=== PATIENT | female | born 1955 | race Hispanic/Latino ===

== ENCOUNTER 2024-05-23 02:25 | Emergency (ER) | payer OTHER ==
[~2024-05-23] VITALS: Ht 149.9 cm; Wt 84.4 kg
[2024-05-23 02:28] VITALS: TEMP 97.4
--- NOTE | 2024-05-23 02:45 | ERN ---
General Chief Complaint: Abdominal Pain Stated Complaint: C/O ABD PAIN X 2 DAYS Time Seen by MD: 02:37 History of Present Illness Initial Comments Patient comes in with complaint of lower abdominal pain for the last two days. Yesterday she had some nausea but no vomiting. No diarrhea. Seems to be worse when she tries to have a bowel movement. She thought perhaps she was a bit constipated but felt like she had an adequate defecation even after trying. Pain is in the suprapubic region. Allergies: Coded Allergies: No Known Allergies (Unverified Allergy, Unknown, 05/23/24) Past Medical History Past Medical History: High Cholesterol Past Surgical History: Hysterectomy ROS Dictation Ten systems reviewed and negative except as noted in HPI Physical Exam Physical Exam Dictation GEN: non toxic, NAD HEENT: atrumatic, PERRL, EOMI, conjunctivae normal NECK: Soft supple nontender Heart RRR, no murmurs Chest: No deformity Lungs: Lungs clear to auscultation Ab: Soft nondistended . Patient has localized tenderness to the left lower quadrant. No gross peritonitis. Back: No midline step-offs. No gross deformity. No CVA tenderness : m/s: Moving all four extremities. No gross deformity Neuro: CN 2-12 intact. Moving all four extremities. Psych: Cooperative Results Laboratory and Microbiology Lab and Micro Result Laboratory Tests Test 05/23/24 02:36 05/23/24 03:39 White Blood Count 13.2 K/uL (4.8-10.8) H Red Blood Count 4.55 MIL/uL (4.00-5.50) Hemoglobin 13.2 g/dL (12.0-16.0) Hematocrit 39.7 % (36-48) Mean Corpuscular Volume 87.3 fL (79-99) Mean Corpuscular Hemoglobin 29.0 pg (27.0-33.0) Mean Corpuscular Hemoglobin Concent 33.2 g/dL (32.0-36.0) Red Cell Distribution Width 13.8 % (11.0-15.5) Platelet Count 297 K/uL (130-400) Mean Platelet Volume 11.3 fL (7.5-10.5) H Immature Granulocyte % (Auto) 0.4 % (0-1) Neutrophils (%) (Auto) 74.7 % (40.0-77.0) Lymphocytes (%) (Auto) 15.9 % (21.0-51.0) L Monocytes (%) (Auto) 7.0 % (3.0-13.0) Eosinophils (%) (Auto) 1.6 % (0.0-8.0) Basophils (%) (Auto) 0.4 % (0.0-5.0) Neutrophils # (Auto) 9.9 K/uL (1.8-7.7) H Lymphocytes # (Auto) 2.1 K/uL (1.0-4.8) Monocytes # (Auto) 0.9 K/uL (0.1-1.0) Eosinophils # (Auto) 0.21 K/uL (0.00-0.70) Basophils # (Auto) 0.05 K/uL (0.00-0.20) Absolute Immature Granulocyte (auto 0.05 K/uL (0-1) Nucleated Red Blood Cells 0.0 % (0.0-0.19) Sodium Level 137 mmol/L (136-145) Potassium Level 4.0 mmol/L (3.5-5.1) Chloride Level 102 mmol/L (101-111) Carbon Dioxide Level 29 mmol/L (21-32) Blood Urea Nitrogen 14 mg/dL (7-18) Creatinine 0.7 mg/dL (0.5-1.0) Glomerular Filtration Rate Calc 95 mL/min (>90) Random Glucose 112 mg/dL (70-105) H Total Calcium 8.3 mg/dL (8.5-10.1) L Total Bilirubin 0.4 mg/dL (0.2-1.0) Aspartate Amino Transf (AST/SGOT) 14 U/L (10-37) Alanine Aminotransferase (ALT/SGPT) 18 U/L (12-78) Alkaline Phosphatase 87 U/L (50-136) Total Protein 7.5 g/dL (6.0-8.3) Albumin 3.3 g/dL (3.5-5.0) L Urine Color LIGHT-YELLOW (YELLOW) Urine Appearance CLEAR (CLEAR) Urine pH 6.5 (5.0-8.0) Urine Specific [place] 1.012 (1.001-1.031) Urine Protein NEGATIVE mg/dL (NEGATIVE) Urine Glucose (UA) NEGATIVE mg/dL (NEGATIVE) Urine Ketones NEGATIVE mg/dL (NEGATIVE) Urine Occult Blood MODERATE (NEGATIVE) H Urine Nitrate NEGATIVE (NEGATIVE) Urine Bilirubin NEGATIVE mg/dL (NEGATIVE) Urine Urobilinogen 0.2 mg/dL (0.2-1.0) Urine Leukocyte Esterase 500 Brianna/uL (NEGATIVE) H Urine RBC 11-25 /HPF (0-1) H Urine WBC 11-25 /HPF (0-1) H Urine Squamous Epithelial Cells FEW /HPF (0-2) Urine Bacteria MOD /HPF (None Seen) Labs Reviewed?: Yes EKG/XRAY/US/CT/MRI CT Scan Comment Statrad read: All acute uncomplicated diverticulitis involves the mall segment of the mid sigmoid colon. No associated focal fluid collections or abscess formation. No pneumatosis. No bowel obstruction. No intraperitoneal free fluid or air. MDM Patient likely has diverticulitis. We will do a CT. Labs. Patient has uncomplicated sigmoid diverticulitis. Dose of Levaquin and Flagyl given here. Discharged on Cipro and Flagyl. ED Course Orders Procedure Category Date Status Time Ct Abdomen/Pelvis CT 05/23/24 Taken W/Contrast 02:42 Cbc With Differential LAB 05/23/24 Complete 02:42 Comprehensive LAB 05/23/24 Complete Metabolic Panel 02:42 Urinalysis LAB 05/23/24 Complete W/Microscopic 02:42 0.9%Nacl 1000ml (Ns PHA 05/23/24 Complete 1000ml) 03:00 Culture Urine STU 05/23/24 In Process 03:48 Iohexol (Omnipaque) PHA 05/23/24 Complete 04:47 Metronidazole (Flagyl) PHA 05/23/24 Logged 06:00 Levofloxacin 750mg PHA 05/23/24 Logged Tab (Levaquin 750mg T 06:00 Current Medications Medications (Trade) Dose Ordered Sig/Tenisha Route PRN Reason Start Time Stop Time Status Last Admin Dose Admin Iohexol (Omnipaque) 75 ml STK-MED ONCE IV 05/23/24 04:47 05/23/24 04:48 DC Sodium Chloride 1,000 ml @ 999 mls/hr Q1H1M IV 05/23/24 03:00 05/23/24 02:55 DC 05/23/24 02:54 Vital Signs Date Time Temp Pulse Resp B/P (MAP) Pulse Ox O2 Delivery O2 Flow Rate FiO2 05/23/24 05:21 73 18 127/50 95 Room Air* 0 05/23/24 03:47 72 16 151/58 95 Room Air* 0 05/23/24 02:28 97.3 79 18 152/76 97 Room Air DX & DISP Disposition: Discharge Departure Impression: Primary Impression: Diverticulitis Condition: Stable Scripts Metronidazole (Metronidazole) 500 Mg Tablet 1 TAB PO TID for 10 Days, #30 TAB 0 Refills Prov: GUSTAVO MOBLEY MD 05/23/24 Ciprofloxacin (Cipro) 500 Mg/5 Ml Sabrina.mc.rec 500 MG PO BID for 10 Days, #20 TAB 0 Refills Prov: GUSTAVO MOBLEY MD 05/23/24 Additional Instructions: Antibiotics as prescribed for diverticulitis Take stool softeners [id number] as needed to keep stool soft Return for any worsening symptoms, increasing pain, inability to tolerate oral intake or any other concerns Referrals: SELF,REFERRAL (PCP) GUSTAVO MOBLEY MD May 23, 2024 02:45
[2024-05-23] MEDS: 0.9%NACL 1000ML 1,000 ML IV SCH (02:54)
[2024-05-23 03:12] LABS: BASOPHILS # (AUTO) 0.05 K/uL (0.00-0.20); BASOPHILS % (AUTO) 0.4 % (0.0-5.0); EOSINOPHILS # (AUTO) 0.21 K/uL (0.00-0.70); EOSINOPHILS % (AUTO) 1.6 % (0.0-8.0); HEMATOCRIT 39.7 % (36-48); IMMATURE GRANULOCYTE ABSOLUTE 0.05 K/uL (0-1); LYMPHOCYTES # (AUTO) 2.1 K/uL (1.0-4.8); LYMPHOCYTES % (AUTO) 15.9 % (21.0-51.0); MEAN CORPUSCULAR HGB CONC 33.2 g/dL (32.0-36.0); MEAN CORPUSCULAR VOLUME 87.3 fL (79-99); MONOCYTES # (AUTO) 0.9 K/uL (0.1-1.0); NEUTROPHILS # (AUTO) 9.9 K/uL (1.8-7.7); NEUTROPHILS % (AUTO) 74.7 % (40.0-77.0); PLATELET COUNT (AUTO) 297 K/uL (130-400); RED BLOOD CELL COUNT(AUTO) 4.55 MIL/uL (4.00-5.50); RED CELL DISTRIBUTION WIDTH 13.8 % (11.0-15.5); WHITE BLOOD COUNT (AUTO) 13.2 K/uL (4.8-10.8)
[2024-05-23 03:36] LABS: CREATININE 0.7 mg/dL (0.5-1.0)
[2024-05-23 03:40] LABS: ALBUMIN 3.3 g/dL (3.5-5.0); BILIRUBIN,TOTAL 0.4 mg/dL (0.2-1.0); TOTAL PROTEIN, SERUM 7.5 g/dL (6.0-8.3)
[2024-05-23 03:47] LABS: APPEARANCE,URINE CLEAR (CLEAR); BILIRUBIN,URINE NEGATIVE (NEGATIVE); COLOR,URINE LIGHT-YELLOW (YELLOW); GLUCOSE, URINE (UA) NEGATIVE (NEGATIVE); KETONES,URINE NEGATIVE (NEGATIVE); LEUKOCYTE ESTERASE ,URINE 500 Leu/uL (NEGATIVE); NITRATE,URINE NEGATIVE (NEGATIVE); OCCULT BLOOD,URINE MODERATE (NEGATIVE); PH,URINE 6.5 (5.0-8.0); PROTEIN,URINE NEGATIVE (NEGATIVE); UROBILINOGEN,URINE 0.2 mg/dL (0.2-1.0)
[2024-05-23 03:49] LABS: BACTERIA,URINE MOD /HPF (None Seen); MUCUS,URINE RARE LPF (None Seen); SQUAMOUS EPITHELIAL CELL,UR FEW /HPF (0-2)
[2024-05-23] MEDS ORDERED: IOHEXOL-350 75 ML VIAL IV ONE (04:47)
--- NOTE | 2024-05-23 04:54 | NUR ---
PATIENT AT CT SCAN AT THIS TIME.
[2024-05-23 05:21] VITALS: BP 127/50; PULSE 73; RESP 18; O2SAT 95
[2024-05-23] MEDS ORDERED: CIPR500S4 PO (05:47)
[2024-05-23] MEDS ORDERED: METR-172 PO (05:47)
[2024-05-23] MEDS ORDERED: levoFLOXacin 750 MG TABLET PO ONE (06:00)
[2024-05-23] MEDS ORDERED: metRONIDazole 500 MG TABLET PO SCH (06:00)
[2024-05-23] MEDS ORDERED: metRONIDazole 500 MG TABLET PO ONE (06:00)
--- NOTE | 2024-05-23 08:32 | HMCIMG ---
CT ABDOMEN/PELVIS W/CONTRAST REASON: llq pain COMPARISON: None. TECHNIQUE: Images are obtained from lung bases through the symphysis pubis following IV contrast, 75 cc Omnipaque 350. FINDINGS: Lung bases are clear. There are no focal liver lesions. There are normal-appearing kidneys.. Spleen and pancreas appear unremarkable. The gallbladder appears normal as well. There is moderate sigmoid diverticulosis. There is inflammation and wall thickening adjacent to the mid sigmoid consistent with a moderate component of diverticulitis. There is no evidence of abscess or perforation. Remaining bowel loops appear unremarkable. This includes normal appearance of the appendix There is no evidence of free fluid or intraperitoneal air. There are no focal fluid collections. Aorta and retroperitoneum appear normal as do pelvic soft tissue structures. The anterior abdominal wall is intact. Osseous structures appear unremarkable. IMPRESSION: 1. Findings consistent with a mild/moderate to degree of sigmoid diverticulitis, no evidence of abscess or perforation. CT was performed with one or more following dose reduction techniques: automated exposure control, adjustment of the mA and kv according to patient's size, or use of a iterative reconstruction technique.
== END 2024-05-23 06:05 | disposition home or self-care (01) ==
LOC: EDH 02:25
DX: K57.32 Diverticulitis of large intestine without perforation or abscess without bleeding (principal); E78.00 Pure hypercholesterolemia, unspecified; R10.30 Lower abdominal pain, unspecified; Z90.710 Acquired absence of both cervix and uterus
CPT/HCPCS: 99285; 74177; 80053; 85025; 87086; 81001; 36415; J7030; Q9967